=== PATIENT | male | born 2005 | race Caucasian/White ===

== ENCOUNTER → 2023-01-12 11:10 | Outpatient (CLI) | payer OTHER, SELFPAY ==
--- NOTE | ~2023-01-12 | XR_ITS ---
XR cervical spine min 6V DATE: 01/12/2023 11:28 INDICATION: Patient fell and had 3 weeks ago. Neck pain. TECHNIQUE: Flexion, extension and neutral lateral views. AP, open-mouth views. Bilateral oblique view s COMPARISON: None FINDINGS: C1 and C2 are normally aligned and the odontoid process is intact. No fracture or dislocati on or locked facet or cervical instability. Cervical interspaces are preserved. No prevertebral soft tissue swelling. No bony encroachment upon the neural foramina. IMPRESSION: Negative Reviewed, dictated and finalized at location B. IMPRESSION: Negative
== END ==
PROVIDERS: PCP Pediatrics
DX: M53.82 Other specified dorsopathies, cervical region (principal)
CPT/HCPCS: 72052